=== PATIENT | female | born 1960 | race Two or more races ===

== ENCOUNTER 2023-09-28 20:05 | Emergency (ER) | payer OTHER ==
[~2023-09-28] VITALS: Ht 162.6 cm; Wt 90.7 kg
[2023-09-28] MEDS ORDERED: METFORMIN HCL500 M3 PO (20:22)
[2023-09-28] MEDS ORDERED: LOSARTAN-HCTZ1 EAC2 PO (20:22)
[2023-09-28] MEDS ORDERED: SIMVASTATIN5 MG PO (20:23)
[2023-09-28] MEDS ORDERED: SYNTHROID137 MCG PO (20:23)
[2023-09-28] MEDS ORDERED: VAZALORE81 MG PO (20:23)
[2023-09-28] MEDS ORDERED: ACETAMINOPHEN 500 MG GEL..CAP PO ONE ×2 (20:45→20:49)
[2023-09-28 21:05] LABS: HEMATOCRIT 36.1 % (36.0-45.00); HEMOGLOBIN 12.3 g/dL (12.0-15.00); MEAN CELL VOLUME 85.8 fL (80.00-100.00); MEAN CORPUSCULAR HEMOGLOBIN 29.2 pg (27.00-32.0); MEAN CORPUSCULAR HGB CONC 34.1 g/dl (32.0-36.0); PLATELET COUNT 324 K/uL (150-450); RED BLOOD COUNT 4.21 M/uL (4.00-6.00); RED CELL DISTRIBUTION WIDTH 13.9 % (11.5-14.5)
[2023-09-28 21:09] LABS: URINE APPEARANCE Clear; URINE BILIRRUBIN Negative (NEGATIVE); URINE BLOOD Large; URINE COLOR Yellow; URINE GLUCOSE Negative (NEGATIVE); URINE KETONE Negative (NEGATIVE); URINE LEUKOCYTE Negative; URINE NITRATE Negative; URINE UROBILINOGEN 0.2 E.U./dl
[2023-09-28 21:13] LABS: URINE BACTERIA 54.1 uL (0.0-1933); URINE EPITHELIAL CELLS 5.2 uL (0.0-38.8); URINE WBC 9.1 uL (0.0-23.2)
[2023-09-28 21:46] LABS: URINE PROTEIN 100 (NEGATIVE)
[2023-09-28 22:45] LABS: CALCIUM 9.5 mg/dL (8.5-10.1); CREATININE SERUM 0.8 mg/dL (0.55-1.02); GFR 72.68; POTASSIUM 3.74 mEq/L (3.5-5.1)
[2023-09-29] MEDS ORDERED: TYLENOL ARTHRI650 MG PO (00:08)
[2023-09-29] MEDS ORDERED: KETOROLAC TROMETHAMINE 60 MG VIAL IM ONE ×2 (00:15→00:20)
== END 2023-09-29 00:24 | disposition home or self-care (01) ==
LOC: ER 20:06
PROVIDERS: Nurse Practitioner Family
DX: B34.9 Viral infection, unspecified (principal); R31.9 Hematuria, unspecified; K76.0 Fatty (change of) liver, not elsewhere classified; N20.0 Calculus of kidney; Z91.040 Latex allergy status; Z85.3 Personal history of malignant neoplasm of breast; Z85.850 Personal history of malignant neoplasm of thyroid; E11.9 Type 2 diabetes mellitus without complications; Z79.84 Long term (current) use of oral hypoglycemic drugs; I10 Essential (primary) hypertension; Z20.822 Contact with and (suspected) exposure to COVID-19